=== PATIENT | male | born 1930 | race Caucasian/White ===

== ENCOUNTER 2020-03-29 06:40 | Day surgery (SDC) | payer OTHER, SELFPAY ==
[2020-03-29] MEDS ORDERED: SIMETHICONE 40 MG/0.6 ML ML ONE (07:58)
[2020-03-29] MEDS: fentaNYL CITRATE/PF 100 MCG/2 ML AMP ONE ×2 (08:30→08:33)
[2020-03-29] MEDS: MIDAZOLAM HCL 5 MG/5 ML VIAL ONE ×2 (08:30→08:33)
[2020-03-29 10:02] VITALS: BP_SYST 142
== END 2020-03-29 10:21 | disposition home or self-care (01) ==
LOC: SMU 06:40 → SDS 06:40
PROVIDERS: ATTEND Internal Medicine
DX: K59.00 Constipation, unspecified (principal); K63.5 Polyp of colon; Z20.828 Contact with and (suspected) exposure to other viral communicable diseases; K57.92 Diverticulitis of intestine, part unspecified, without perforation or abscess without bleeding; Z87.891 Personal history of nicotine dependence; I50.9 Heart failure, unspecified; E11.9 Type 2 diabetes mellitus without complications; E78.00 Pure hypercholesterolemia, unspecified; Z95.5 Presence of coronary angioplasty implant and graft; Z90.49 Acquired absence of other specified parts of digestive tract; K57.30 Diverticulosis of large intestine without perforation or abscess without bleeding
CPT/HCPCS: 45380; 45381; 45385; 82962; 88305; 99152; 99153; G0378; J2250; J3010; J7030; U0003; 45382; 45384